=== PATIENT | male | born 1950 | race Caucasian/White ===

== ENCOUNTER 2022-05-29 14:05 | Inpatient (IN) | payer OTHER ==
[2022-05-29 16:08] VITALS: BMI 31.4
[2022-05-29] MEDS ORDERED: MAG HYDROX/AL HYDROX/SIMETH 30 ML UNIT-DOSE CUP PO PRN (16:56)
[2022-05-29] MEDS ORDERED: METHOCARBAMOL 500 MG TABLET PO PRN (16:56)
[2022-05-29] MEDS ORDERED: NICOTINE 10 MG CARTRIDGE (INHALER) IH PRN (16:56)
[2022-05-29] MEDS ORDERED: BENZOCAINE/MENTHOL (CHLORASEPTIC ) LOZENGE MM PRN (16:56)
[2022-05-29] MEDS ORDERED: NALOXONE HCL (KLOXXADO) 8 MG SPRAY NS PRN (16:56)
[2022-05-29] MEDS ORDERED: ONDANSETRON *ODT* 4 MG TABLET SL PRN (16:56)
[2022-05-29] MEDS ORDERED: POLYETHYLENE GLYCOL (HEALTHYLAX) 3350 17 GM PACKET PO PRN (16:56)
[2022-05-29] MEDS ORDERED: DICYCLOMINE HCL 10 MG CAPSULE PO PRN (16:56)
[2022-05-29] MEDS ORDERED: IBUPROFEN 600 MG TABLET (FP) PO PRN (16:56)
[2022-05-29] MEDS ORDERED: IBUPROFEN 400 MG TABLET (FP) PO PRN (16:56)
[2022-05-29] MEDS ORDERED: MAGNESIUM HYDROX 2400MG/30ML ORAL SUSPENSION 30 ML CUP PO PRN (16:56)
[2022-05-29] MEDS ORDERED: LOPERAMIDE HCL 2 MG CAPSULE PO PRN (16:56)
[2022-05-29] MEDS ORDERED: ACETAMINOPHEN 325 MG TABLET (FP) PO PRN ×2 (16:56)
[2022-05-29] MEDS ORDERED: BISMUTH SUBSALICYLATE 524 MG/30 ML PO PRN (16:56)
[2022-05-29] MEDS: PRENATAL VITAMINS W/ FOLIC ACID TABLET (FP) PO SCH (19:31)
[2022-05-29] MEDS: chlordiazePOXIDE HCL 25 MG CAPSULE PO SCH ×2 (19:33→22:29)
[2022-05-29] MEDS: THIAMINE HCL 100 MG TABLET (FP) PO SCH (22:29)
[2022-05-29] MEDS: MELATONIN 5 MG TABLETS PO SCH (22:30)
[2022-05-30] MEDS: chlordiazePOXIDE HCL 25 MG CAPSULE PO SCH ×4 (05:11→22:31)
[2022-05-30] MEDS ORDERED: cloNIDine HCL 0.1 MG TABLET PO ONE (06:24)
[2022-05-30] MEDS: PRENATAL VITAMINS W/ FOLIC ACID TABLET (FP) PO SCH (10:44)
[2022-05-30 12:25] LABS: HEMATOCRIT 42.9 % (35.4-49); HEMOGLOBIN 14.5 GM/dL (11.7-16.9); MCH 33.5 pg (25.7-33.7); MCHC 33.8 g/dl (32.0-35.9); MEAN CELL VOLUME 99.2 fl (80-96); MEAN PLT VOLUME 8.3 fl (7.5-11.1); PLATELET COUNT 199 10^3/uL (134-434); RBC 4.32 M/mm3 (4.00-5.60); RDW 14.5 % (11.9-15.9); WHITE BLOOD COUNT 3.8 K/mm3 (4.0-10.0)
[2022-05-30 12:53] LABS: CALCIUM 7.8 mg/dL (8.5-10.1)
[2022-05-30 12:54] LABS: ALBUMIN 3.5 g/dl (3.4-5.0); BLOOD UREA NITROGEN 12.6 mg/dL (7-18)
[2022-05-30 12:57] LABS: CREATININE 0.6 mg/dL (0.55-1.3); TOT PROT 6.2 g/dl (6.4-8.2)
[2022-05-30 13:00] LABS: BILIRUBIN,TOTAL 1.8 mg/dL (0.2-1)
[2022-05-30] MEDS: MELATONIN 5 MG TABLETS PO SCH (22:31)
[2022-05-30] MEDS: THIAMINE HCL 100 MG TABLET (FP) PO SCH (22:31)
[2022-05-31] MEDS ORDERED: chlordiazePOXIDE HCL 25 MG CAPSULE PO SCH (05:00)
[2022-05-31] MEDS ORDERED: LORazepam 1 MG TABLET PO PRN (09:36)
[2022-05-31] MEDS: PRENATAL VITAMINS W/ FOLIC ACID TABLET (FP) PO SCH (10:09)
[2022-05-31] MEDS: LORazepam 1 MG TABLET PO SCH ×3 (10:10→22:22)
[2022-05-31] MEDS: MELATONIN 5 MG TABLETS PO SCH (22:23)
[2022-05-31] MEDS: THIAMINE HCL 100 MG TABLET (FP) PO SCH (22:24)
[2022-06-01] MEDS ORDERED: LORazepam 0.5 MG TABLET PO PRN
[2022-06-01] MEDS ORDERED: chlordiazePOXIDE HCL 10 MG CAPSULE PO SCH (05:00)
[2022-06-01] MEDS: LORazepam 1 MG TABLET PO SCH ×4 (05:48→22:39)
[2022-06-01] MEDS: PRENATAL VITAMINS W/ FOLIC ACID TABLET (FP) PO SCH (10:11)
[2022-06-01] MEDS: LACTULOSE 20 GM/30 ML UDC (FOR ORAL USE ONLY) PO SCH ×4 (10:11→22:40)
[2022-06-01] MEDS ORDERED: CALCIUM 250MG/VIT-D 125 UNITS 1 COMBO TABLET PO SCH (12:00)
[2022-06-01] MEDS: THIAMINE HCL 100 MG TABLET (FP) PO SCH (22:39)
[2022-06-01] MEDS: MELATONIN 5 MG TABLETS PO SCH (22:40)
[2022-06-02] MEDS ORDERED: chlordiazePOXIDE HCL 10 MG CAPSULE PO SCH (05:00)
[2022-06-02] MEDS ORDERED: LORazepam 0.5 MG TABLET PO SCH (05:00)
[2022-06-02 09:17] VITALS: BP 146/96; PULSE 89; RESP 20; TEMP 97.5
[2022-06-03] MEDS ORDERED: chlordiazePOXIDE HCL 10 MG CAPSULE PO ONE (05:00)
== END 2022-06-02 09:12 | disposition home or self-care (01) | DRG 775 ==
LOC: YASAS 14:05 → Y6N 18:12
PROVIDERS: ADMIT Allergy & Immunology; ATTEND Surgery
PROC: HZ2ZZZZ Detoxification Services for Substance Abuse Treatment (ICD-10-PCS; principal; 2022-05-29)
DX: F10.230 Alcohol dependence with withdrawal, uncomplicated (principal); R74.8 Abnormal levels of other serum enzymes; R79.89 Other specified abnormal findings of blood chemistry; W19.XXXA Unspecified fall, initial encounter; Y93.9 Activity, unspecified; Y92.239 Unspecified place in hospital as the place of occurrence of the external cause; Z91.81 History of falling
CPT/HCPCS: 36415; 80053; 82140; 82247; 84450; 84460; 85027; 86780; C9803-CS; U0003; U0005